=== PATIENT | male | born 1940 | race Caucasian/White ===

== ENCOUNTER 2023-02-01 08:00 | Outpatient (CLI) | payer MEDICARE ==
--- NOTE | 2023-02-01 17:08 | XRAY Report ---
PROCEDURE: Knee 3 View RT INDICATIONS: CONTUSION OF RIGHT KNEE TECHNIQUE: 3 views of the right knee(s) were acquired. COMPARISON: None. FINDINGS: Bones: No fractures or dislocations. No suspicious bony lesions. Soft tissues: No knee joint effusion. No suspicious soft tissue calcifications or masses. Prepatell ar soft tissue swelling IMPRESSION: Prepatellar soft tissue swelling without fracture or foreign body Reviewed by: Osbaldo Saldivar MD on 02/01/2023 4:06 PM [facility] Approved by: Osbaldo Saldivar MD on 02/01/2023 4:06 PM [facility] Station ID: [id number]
--- NOTE | 2023-02-01 17:10 | XRAY Report ---
PROCEDURE: Femur 2V RT INDICATIONS: CONTUSION OF RIGHT THIGH TECHNIQUE: 2 views of the femur were acquired. COMPARISON: None. FINDINGS: Bones: Severe acetabular joint space and narrowing with remodeling in the femoral head. Generalized decreased osseous mineralization present. Mild joint space narrowing noted at the knee Soft tissues: No suspicious soft tissue calcifications or masses. IMPRESSION: Severe hip osteoarthritis. No fracture Reviewed by: Osbaldo Saldivar MD on 02/01/2023 4:09 PM [facility] Approved by: Osbaldo Saldivar MD on 02/01/2023 4:09 PM [facility]DT Station ID: [id number]
== END 2023-02-01 23:59 | disposition home or self-care (01) ==
LOC: DI.S 08:00
PROVIDERS: ATTEND Emergency Medicine
DX: S70.11XA Contusion of right thigh, initial encounter (principal); S80.01XA Contusion of right knee, initial encounter; M16.11 Unilateral primary osteoarthritis, right hip

== ENCOUNTER 2023-02-04 14:20 | Outpatient (CLI) | payer MEDICARE | END 2023-02-04 23:59 | disposition home or self-care (01) | LOC: LAB 14:20 | PROVIDERS: ATTEND Physician Assistant Medical | DX: L03.115 Cellulitis of right lower limb (principal) | CPT/HCPCS: 87070; 87181; 87205 ==